=== PATIENT | female | born 1965 | race Caucasian/White ===

== ENCOUNTER 2017-03-06 09:23 | Day surgery (SDC) | payer BC ==
[~2017-03-06] VITALS: Ht 167.6 cm; Wt 94.3 kg
[~2017-03-06 09:23] MED LIST: OXYBUTYNIN5 MG PO; PERCOCET 5/3251 EACH PO; VITAMIN D31000 IU PO
--- NOTE | 2017-03-06 12:09 | Operative Note ---
Surgeon/Diagnoses Surgeon/Terminal Computer Operator(s) Date of procedure: 03/06/17 Surgeon: MD Nash Garland Terminal Computer Operator(s): Elizabeth Ordoñez Diagnoses Pre-op diagnosis: Chronic calculus cholecystitis Post-op diagnosis Same Procedure Procedure Procedure: Laparoscopic cholecystectomy Indications: HERMINIO ONE is a 51 year-old Female with a history of RIGHT upper quadrant pain and radiographic evidence of chronic calculus cholecystitis Findings: Mild to moderate pericholecystic fat stranding Elongated tortuous cystic duct Large stone within gallbladder Procedure Description: After informed consent was obtained, the patient was taken to the operating room and placed in the supine position. General anesthesia was induced and the patient's abdomen was prepped and draped in a sterile fashion. After infiltration with local anesthetic an infraumbilical incision was made. A Veress needle was placed in position. The abdomen was insufflated. A 5 mm optical trocar was placed in position. Under direct visualization, 2 additional 5 mm trocars were placed in the RIGHT upper quadrant. A 12 mm trocar was placed in the subxiphoid position. The gallbladder was elevated up and over the liver margin. The tissue around the cystic duct was carefully dissected. Clips were placed proximally and the duct was transected at the infundibulum utilizing harmonic kinjal. Harmonic kinjal were then utilized to remove the gallbladder from the liver margin. The gallbladder was placed in a retrieval bag and removed through the subxiphoid trocar site. The RIGHT upper quadrant was thoroughly irrigated. No active bleeding or bile leak was noted. The fascia at the subxiphoid trocar site was reapproximated utilizing the flakita-close device. Pneumoperitoneum was released as the remaining trocars were removed. All wounds were irrigated and skin was closed with 4-0 Monocryl in a subcuticular fashion. Steri-Strips were applied and the patient's anesthetic agents were reversed. After extubation, the patient was transferred to recovery in stable condition. EBL (ml): 10 Anesthesia: GETA Complications: No immediate Specimens: gallbladder and contents Disposition Disposition: Stable to recovery from where she will be discharged home. She will follow up in 1-2 weeks. at 1208
--- NOTE | 2017-03-06 12:30 | Anesthesia Record ---
Anesthesia Record Part I Total IV fluids: 1200 EBL (ml): 15 Urine Output: 0 B/P: 144/79 % SaO2: 93 Pulse: 69 Resps: 16 Temp: 98.3 Patient is: Drowsy, Nasal O2, Stable Stable to PACU at: 1220 at 1222
--- NOTE | 2017-03-06 12:31 | Anesthesia Record ---
Anesthesia Record Part II Discharge time: 1250 Destination: Same day surgery PACU nurse assessment review? Yes Patient is: Awake, Stable Anesthesia complications? No at 1230
[2017-03-06 15:01] VITALS: BP 108/62
== END 2017-03-06 14:00 | disposition home or self-care (01) ==
LOC: SDC 09:23
PROVIDERS: Surgery
PROC: 0FT44ZZ Resection of Gallbladder, Percutaneous Endoscopic Approach (ICD-10-PCS; principal; 2017-03-06 10:45)
DX: K80.10 Calculus of gallbladder with chronic cholecystitis without obstruction (principal)